=== PATIENT | female | born 1945 | race Caucasian/White ===

== ENCOUNTER 2017-12-09 09:17 | Observation (INO) | payer OTHER, MEDICARE ==
--- NOTE | 2017-12-09 09:40 | CPEKG ---
Heart Rate: 78 RR Interval: 769 P-R Interval: 152 QRSD Interval: 84 QT Interval: 384 QTC Interval: 438 P [place]: -3 QRS [place]: -37 T Wave [place]: 65 EKG Severity - OTHERWISE NORMAL ECG - EKG Impression: SINUS RHYTHM EKG Impression: LEFT AXIS DEVIATION Electronically Signed By: Prem Pollard 12-Dec-2017 09:01:44
--- NOTE | 2017-12-09 09:41 | EDPHY ---
HPI/HX/ROS/PE/MDM Narrative: CHIEF COMPLAINT: Shortness of breath, cough HPI: The patient is a 72 y/o female who is currently on chemotherapy for multiple myeloma and arrives with her friend complaining of intermittent shortness of breath and coughing onset Tuesday, 5 days ago. She feels symptoms are worse in the morning and while lying flat and have become progressively worse since onset. Her dyspnea feels like it is "hard to catch my breath." There is no difference with exertion and she's had no symptoms like this previously. She also has sinus drainage most noticeable in the morning that seems to aggravate her cough. She denies history of blood clots, cardiac disease , or respiratory disease. No fever, new leg pain or swelling, chest pain. REVIEW OF SYSTEMS: Aside from elements discussed in the HPI, a comprehensive 10-point review of systems was reviewed and is negative. PMH: Multiple myeloma - on chemotherapy SOCIAL HISTORY: Friend at bedside. PHYSICAL EXAM: General:Patient is alert, in no acute distress. ENT:Eyes are normal to inspection. ENT inspection normal. Neck: Normal inspection. Full range of motion. Respiratory:No respiratory distress. Breath sounds normal bilaterally. Cardiovascular: Regular rate and rhythm. Strong peripheral pulses. Normal cap refill. Abdomen:The abdomen is nontender to palpation. There are no peritoneal signs. Back: Normal to inspection. No tenderness to palpation. Skin: Normal color. No rash. Warm and dry. Extremities: Normal appearance. Full range of motion. Neuro: Oriented x3. Normal motor function. Normal sensory function. ED Course: This is a 72 y/o female undergoing chemotherapy for multiple myeloma who presents with a 5-day history of progressive intermittent dyspnea and cough with concurrent sinus drainage. Symptoms are worse in the morning and while lying flat, but unchanged with exertion. Lungs are clear to auscultation and she is not hypoxemic. Plan for IV, labs, EKG, chest x-ray. The 12 lead EKG was interpreted by myself. See hard copy and/or "tracemaster" electronic copy for interpretation. Chest x-ray: negative for acute process. Labs unremarkable. Attempted road test off O2. Patient's SpO2 dropped to 84% and she became tachycardic around 110. Vitals recovered quickly with rest. Plan for echocardiogram to assess heart function. Echocardiogram: preliminary read is negative Reassessed patient and discussed findings. Due to ongoing hypoxemia, I recommended admission for further care. She agrees to this. Spoke with hospitalist service. Dr. Correa accepts admission. - Data Points Imaging Results: Imaging Impressions Chest X-Ray 12/09/17 09:29 Impression: 1. A few fibrotic streaks are noted at the lung bases. 2. Stable moderate to marked compression fractures of T11 and T12. 3. Mild to moderate hiatal hernia. Imaging: I viewed and interpreted images myself Laboratory Results: Laboratory Results 12/09/17 09:45 12/09/17 09:45 12/09/17 12/09/17 12/09/17 12:04 10:15 09:45 WBC RBC Hgb Hct MCV MCH MCHC RDW Plt Count MPV Neut % (Auto) Lymph % (Auto) [place] % (Auto) Eos % (Auto) Baso % (Auto) Nucleat RBC Rel Count Absolute Neuts (auto) Absolute Lymphs (auto) Absolute Monos (auto) Absolute Eos (auto) Absolute Basos (auto) Absolute Nucleated RBC Immature Gran % Immature Gran # D-Dimer 0.33 ug/mLFEU ug/mLFEU (0.00-0.50) Sodium 140 mEq/L mEq/L (135-145) Potassium 3.7 mEq/L mEq/L (3.5-5.2) Chloride 105 mEq/L mEq/L (97-110) Carbon Dioxide 24 mEq/l mEq/l (22-31) Anion Gap 11 mEq/L mEq/L (8-16) BUN 3 mg/dL L mg/dL (7-23) Creatinine 0.5 mg/dL L mg/dL (0.6-1.0) Estimated GFR > 60 Glucose 92 mg/dL mg/dL (70-100) Calcium 8.4 mg/dL L mg/dL (8.5-10.4) Troponin I < 0.012 ng/mL ng/mL (0.000-0.034) NT-Pro-B Natriuret Pep 60 pg/mL pg/mL (0-125) 12/09/17 09:45 WBC 7.41 10^3/uL 10^3/uL (3.80-9.50) RBC 4.21 10^6/uL 10^6/uL (4.18-5.33) Hgb 12.8 g/dL g/dL (12.6-16.3) Hct 38.9 % % (38.0-47.0) MCV 92.4 fL fL (81.5-99.8) MCH 30.4 pg pg (27.9-34.1) MCHC 32.9 g/dL g/dL (32.4-36.7) RDW 15.7 % H % (11.5-15.2) Plt Count 399 10^3/uL 10^3/uL (150-400) MPV 9.6 fL fL (8.7-11.7) Neut % (Auto) 72.5 % % (39.3-74.2) Lymph % (Auto) 11.7 % L % (15.0-45.0) Dixon % (Auto) 11.3 % % (4.5-13.0) Eos % (Auto) 3.9 % % (0.6-7.6) Baso % (Auto) 0.3 % % (0.3-1.7) Nucleat RBC Rel Count 0.0 % % (0.0-0.2) Absolute Neuts (auto) 5.37 10^3/uL 10^3/uL (1.70-6.50) Absolute Lymphs (auto) 0.87 10^3/uL L 10^3/uL (1.00-3.00) Absolute Monos (auto) 0.84 10^3/uL H 10^3/uL (0.30-0.80) Absolute Eos (auto) 0.29 10^3/uL 10^3/uL (0.03-0.40) Absolute Basos (auto) 0.02 10^3/uL 10^3/uL (0.02-0.10) Absolute Nucleated RBC 0.00 10^3/uL 10^3/uL (0-0.01) Immature Gran % 0.3 % % (0.0-1.1) Immature Gran # 0.02 10^3/uL 10^3/uL (0.00-0.10) D-Dimer Sodium Potassium Chloride Carbon Dioxide Anion Gap BUN Creatinine Estimated GFR Glucose Calcium Troponin I NT-Pro-B Natriuret Pep General Time Seen by Provider: 12/09/17 09:27 Initial Vital Signs: Initial Vital Signs Temperature (C) 36.8 C 12/09/17 09:25 Heart Rate 88 12/09/17 09:25 Respiratory Rate 18 12/09/17 09:25 Blood Pressure 151/95 H 12/09/17 09:25 O2 Sat (%) 92 12/09/17 09:25 O2 Delivery Mode Room Air Allergies/Adverse Reactions: No Known Allergies Allergy (Verified 12/09/17 13:33) Home Medications: Medication Instructions Recorded Aspirin EC [Aspirin EC 325 mg (*)] 325 mg PO HS 12/09/17 C/E/Zn/Cu/OM3/DHA/EPA/LUT/ZEAX 1 each PO BID 12/09/17 [Preservision Areds 2 Softgel] Dexamethasone [Decadron 4 MG (*)] 20 mg PO AD 12/09/17 Lenalidomide [Revlimid] 10 mg PO HS 12/09/17 Levothyroxine [Synthroid 88 mcg 88 mcg PO DAILY06 12/09/17 (*)] Loperamide HCl [Imodium 2 mg (*)] 2 mg PO PRN PRN 12/09/17 Ondansetron [Zofran Odt] 8 mg PO Q8 PRN 12/09/17 Ranitidine HCl [Zantac] 150 mg PO TID PRN 12/09/17 Temazepam [Restoril] 30 mg PO HS 12/09/17 Albuterol Sulfate [Proair 90 mcg IH TID PRN #1 aer.pow.ba 12/10/17 Respiclick] predniSONE 20 mg PO DAILY #6 tab 12/10/17 Departure - Departure Disposition: [facility] Acute Clinical Impression: Hypoxia Multiple myeloma Qualifiers: Multiple myeloma remission status: not in remission Qualified Code(s): C90.00 - Multiple myeloma not having achieved remission Condition: Fair Report Scribed for: Eulalio Lincoln Report Scribed by: Mayra Giles Date of Report: 12/09/17 Time of Report: 09:41 Physician Review and Approval Statement: Portions of this note were transcribed by an ED scribe. I personally performed the history, physical exam, and medical decision making; and confirm the accuracy of the information in the transcribed note.
[2017-12-09 09:50] LABS: PLATELET COUNT 399 10^3/uL (150-400)
--- NOTE | 2017-12-09 13:39 | ECHO ---
[email or web address] [address] [address] Main: [phone] Fax: Transthoracic Echocardiogram Name: KATIE ROBIN MR#: [id number] Study Date: 12/09/2017 Study Time: 12:31 PM Date of : 1945 Age: 72 year(s) Height: 170.2 cm (67 in.) Weight: 79.38 kg (175 lb.) BSA: 1.91 m2 Gender: Female Examination: Limited Echo Indication: Shortness of breath Image Quality: Adequate Contrast: Requested by: Eulalio Lincoln BP: / Heart Rate: Rhythm: Indication: Shortness of breath Procedure Staff [employer]ision Crop Manager: Adriana Martinez RDCS Reading Physician: Melisa Centeno MD Requesting Provider: Conclusions: Normal size left ventricle. Normal global systolic LV function. EF is 62 %. No regional wall motion abnormality. Normal size right ventricle. Normal RV function. Mild mitral valve regurgitation is present. Mild tricuspid regurgitation is present. The pulmonary artery pressure is normal. no previous echo Measurements: Chambers Valvular Assessment AV/MV Valvular Assessment TV/PV Normal Normal Normal Name Value Range Name Value Range Name Value Range LVEF (BP): 62 % (>=55 %) AV Vmax: 1.90 m/s (1 m/s-1.7 TR Vmax: 2.46 mm/s ( - ) m/s) TR PGmax: 24 mmHg ( - ) AV maxP mmHg ( - ) syst. PAP: 29 mmHg ( - ) AV meanP mmHg ( - ) LVOT Vmax: 1.36 m/s (0.7 m/s-1.1 m/s) Continued Measurements: Chambers Valvular Assessment TV/PV Name Value Name Value LADs Lon.6 cm CVP (est.): 5 mmHg LA Area: 16.2 cm2 LA Volume: 34 ml Patient: KATIE ROBIN Study Date: 12/09/2017 Page 1 of 2 12:31 PM LA Volume Index: 17.8 ml/m2 Findings: Left Ventricle: Normal size left ventricle. No LV hypertrophy. Normal global systolic LV function. EF is 62 %. No regional wall motion abnormality. Right Ventricle: Normal size right ventricle. Normal RV function. Left Atrium: The left atrium is normal in size. Right Atrium: The right atrium is normal in size. Mitral Valve: There is mild thickening of the mitral valve leaflets. Mild mitral valve regurgitation is present. No mitral stenosis is present. Aortic Valve: The aortic valve is normal in appearance and function. There is no significant aortic valve regurgitation. No aortic valve stenosis is present. Tricuspid Valve: The tricuspid valve is normal in appearance and function. Mild tricuspid regurgitation is present. The pulmonary artery pressure is normal. Right ventricular systolic pressure measures 29mmHg. Pulmonic Valve: The pulmonic valve is normal in appearance and function. Aorta: The aorta is normal. IVC: The IVC is normal sized. Pericardium: There is pericardial fat. No pleural effusion. small anterior pericardial effusion without echocardiographic evidence of tamponade. (No Signature Object) Patient: KATIE ROBIN Study Date: 12/09/2017 Page 2 of 2 12:31 PM [id number]
[2017-12-09] MEDS ORDERED: ONDANSETRON DISINTEGRATING 4 MG TAB PO PRN (15:01)
[2017-12-09] MEDS ORDERED: ACETAMINOPHEN 325 MG TAB PO PRN (15:01)
[2017-12-09] MEDS ORDERED: oxyCODONE IR 5 MG TAB PO PRN (15:01)
[2017-12-09] MEDS ORDERED: ONDANSETRON 4 MG/2 ML VIAL IVP PRN (15:01)
[2017-12-09] MEDS ORDERED: LOPERAMIDE HCL 2 MG CAP PO PRN (15:03)
[2017-12-09] MEDS ORDERED: NON-FORMULARY NEW DRUG (Ranitidine Hcl [Zantac] 150 MG) PO PRN (15:03)
[2017-12-09] MEDS ORDERED: NON-FORMULARY NEW DRUG (Ondansetron [Zofran Odt] 8 MG) PO PRN (15:03)
--- NOTE | 2017-12-09 15:07 | PDGENHP ---
History and Physical - Chief Complaint cough, sob - History of Present Illness This is a 72 yo female who is being admitted for hypoxemia. She reports uri sx's , cough, SOB since Tuesday. She has been afebrile. She denies cp, sob, n/v/d, palpitations, leg swelling, fever. She does not have a hx of asthma. In the ED she had negative DDimer and BNP. She had an Echo which is unremarkable. A CXR which is unremarkable PMHx: MM, compression fracture, Hypothyroidism PSHx: Kyphoplasty, hysterectomy soc: hx of prior tobacco use. no etoh fmhx: no hx of MM History Information - Allergies/Home Medication List Allergies/Adverse Reactions: No Known Allergies Allergy (Verified 12/09/17 13:33) Home Medications: Aspirin EC [Aspirin EC 325 mg (*)] 325 mg PO HS 12/09/17 [Last Taken 12/08/17] C/E/Zn/Cu/OM3/DHA/EPA/LUT/ZEAX [Preservision Areds 2 Softgel] 1 each PO BID 06/18 [Last Taken 12/09/17] Dexamethasone [Decadron 4 MG (*)] 20 mg PO AD 12/09/17 [Last Taken 12/02/17] Lenalidomide [Revlimid] 10 mg PO HS 12/09/17 [Last Taken 12/08/17] Levothyroxine [Synthroid 88 mcg (*)] 88 mcg PO DAILY06 12/09/17 [Last Taken 06/18] Loperamide HCl [Imodium 2 mg (*)] 2 mg PO PRN PRN 12/09/17 [Last Taken 12/09/17] Ondansetron [Zofran Odt] 8 mg PO Q8 PRN 12/09/17 [Last Taken Unknown] Ranitidine HCl [Zantac] 150 mg PO TID PRN 12/09/17 [Last Taken Unknown] Temazepam [Restoril] 30 mg PO HS 12/09/17 [Last Taken 12/08/17] I have personally reviewed and updated: medical history, social history - Social History Smoking Status: Former smoker Review of Systems Review of Systems: ROS: 10pt was reviewed & negative except for what was stated in HPI & below Physical Exam Physical Exam: Temp Pulse Resp BP Pulse Ox 37.1 C 73 17 157/79 H 94 12/09/17 14:57 12/09/17 14:57 12/09/17 14:57 12/09/17 14:57 12/09/17 14:57 O2 (L/minute) 2 Constitutional: no apparent distress Eyes: PERRL, EOMI Ears, Nose, Mouth, Throat: moist mucous membranes, hearing normal Cardiovascular: regular rate and rhythym, No edema Respiratory: reduced air movement, expiratory wheeze Gastrointestinal: normoactive bowel sounds, soft, non-tender abdomen Genitourinary: no bladder fullness Skin: warm Musculoskeletal: full muscle strength Neurologic: AAOx3 Psychiatric: interacting appropriately, not anxious, not encephalopathic Lymph, Heme, Immunologic: No petechiae Lab Data & Imaging Review 12/09/17 09:45 12/09/17 09:45 WBC 7.41 10^3/uL (3.80-9.50) 12/09/17 09:45 RBC 4.21 10^6/uL (4.18-5.33) 12/09/17 09:45 Hgb 12.8 g/dL (12.6-16.3) 12/09/17 09:45 Hct 38.9 % (38.0-47.0) 12/09/17 09:45 MCV 92.4 fL (81.5-99.8) 12/09/17 09:45 MCH 30.4 pg (27.9-34.1) 12/09/17 09:45 MCHC 32.9 g/dL (32.4-36.7) 12/09/17 09:45 RDW 15.7 % (11.5-15.2) H 12/09/17 09:45 Plt Count 399 10^3/uL (150-400) 12/09/17 09:45 MPV 9.6 fL (8.7-11.7) 12/09/17 09:45 Neut % (Auto) 72.5 % (39.3-74.2) 12/09/17 09:45 Lymph % (Auto) 11.7 % (15.0-45.0) L 12/09/17 09:45 [place] % (Auto) 11.3 % (4.5-13.0) 12/09/17 09:45 Eos % (Auto) 3.9 % (0.6-7.6) 12/09/17 09:45 Baso % (Auto) 0.3 % (0.3-1.7) 12/09/17 09:45 Nucleat RBC Rel Count 0.0 % (0.0-0.2) 12/09/17 09:45 Absolute Neuts (auto) 5.37 10^3/uL (1.70-6.50) 12/09/17 09:45 Absolute Lymphs (auto) 0.87 10^3/uL (1.00-3.00) L 12/09/17 09:45 Absolute Monos (auto) 0.84 10^3/uL (0.30-0.80) H 12/09/17 09:45 Absolute Eos (auto) 0.29 10^3/uL (0.03-0.40) 12/09/17 09:45 Absolute Basos (auto) 0.02 10^3/uL (0.02-0.10) 12/09/17 09:45 Absolute Nucleated RBC 0.00 10^3/uL (0-0.01) 12/09/17 09:45 Immature Gran % 0.3 % (0.0-1.1) 12/09/17 09:45 Immature Gran # 0.02 10^3/uL (0.00-0.10) 12/09/17 09:45 D-Dimer 0.33 ug/mLFEU (0.00-0.50) 12/09/17 10:15 Sodium 140 mEq/L (135-145) 12/09/17 09:45 Potassium 3.7 mEq/L (3.5-5.2) 12/09/17 09:45 Chloride 105 mEq/L (97-110) 12/09/17 09:45 Carbon Dioxide 24 mEq/l (22-31) 12/09/17 09:45 Anion Gap 11 mEq/L (8-16) 12/09/17 09:45 BUN 3 mg/dL (7-23) L 12/09/17 09:45 Creatinine 0.5 mg/dL (0.6-1.0) L 12/09/17 09:45 Estimated GFR > 60 12/09/17 09:45 Glucose 92 mg/dL (70-100) 12/09/17 09:45 Calcium 8.4 mg/dL (8.5-10.4) L 12/09/17 09:45 Troponin I < 0.012 ng/mL (0.000-0.034) 12/09/17 09:45 NT-Pro-B Natriuret Pep 60 pg/mL (0-125) 12/09/17 12:04 Assessment & Plan Assessment: #Hypoxemia #Bronchitis #Hx of MM #Hypothyroidism Plan: Steroids inhaler home meds Lovenox for DVT proph observation
[2017-12-09] MEDS ORDERED: FAMOTIDINE 20 MG TAB PO PRN (15:08)
[2017-12-09] MEDS ORDERED: NS 1,000 ML IV SCH (15:15)
[2017-12-09] MEDS: methylPREDNISolone SOD SUCC 125 MG/2 ML VIAL IVP SCH ×2 (15:57→20:44)
[2017-12-09] MEDS: ALBUTEROL 3 ML DEYVIAL IH SCH ×2 (16:05→20:58)
[2017-12-09] MEDS: PRESERVISION AREDS2 FORMULA EYE VIT 1 EACH PO SCH (20:44)
[2017-12-09] MEDS ORDERED: TEMAZEPAM 15 MG CAP PO SCH (21:00)
[2017-12-09] MEDS ORDERED: ASPIRIN EC 325 MG TAB PO SCH (21:00)
[2017-12-09] MEDS ORDERED: NON-FORMULARY NEW DRUG (Temazepam [Restoril] 30 MG) PO SCH (21:00)
[2017-12-09] MEDS ORDERED: Lenalidomide [Revlimid] 10 MG PO SCH (21:00)
[2017-12-10] MEDS: ALBUTEROL 3 ML DEYVIAL IH SCH ×2 (05:11→11:43)
[2017-12-10 05:15] LABS: PLATELET COUNT 394 10^3/uL (150-400)
[2017-12-10] MEDS ORDERED: LEVOTHYROXINE 88 MCG TAB PO SCH (06:00)
[2017-12-10 08:17] VITALS: BP 147/70
[2017-12-10] MEDS: PRESERVISION AREDS2 FORMULA EYE VIT 1 EACH PO SCH (08:30)
[2017-12-10] MEDS: methylPREDNISolone SOD SUCC 125 MG/2 ML VIAL IVP SCH (08:30)
[2017-12-10] MEDS ORDERED: ENOXAPARIN 40 MG/0.4 ML SYR SC SCH (09:00)
--- NOTE | 2017-12-10 11:14 | PDDCSUM ---
Discharge Summary Discharge Summary: This is a 72 yo female admitted with Hypoxemia and acute bronchitis. She was kept overnight and started on IV steroids and scheduled inhalers. She is not much improved. She will be treated with Prednisone burst and inhaler. She will f /u with Oncology on Tuesday. DDX: #Hypoxemia #Acute Bronchitis #Hx of MM #Hypothyroidism Exam: NAD AAOX3 RRR DECREASED LUNGS SOUNDS, NORMAL WORK OF BREATHING NO LE EDEMA MEDS: SEE MED REC TOTAL TIME SPENT ON D/C IS 35 MINS
== END 2017-12-10 12:41 | disposition home or self-care (01) ==
LOC: F1N 14:19
PROVIDERS: ADMIT Family Medicine; ATTEND Family Medicine
DX: R09.02 Hypoxemia (principal); J20.9 Acute bronchitis, unspecified; C90.00 Multiple myeloma not having achieved remission; E03.9 Hypothyroidism, unspecified; K44.9 Diaphragmatic hernia without obstruction or gangrene; Z92.21 Personal history of antineoplastic chemotherapy; Z87.891 Personal history of nicotine dependence
CPT/HCPCS: 71046; 93005; 93308; 99285; G0378; J1650; J2930; J7613

== ENCOUNTER → 2018-02-23 | Outpatient (CLI) | payer OTHER, MEDICARE | LOC: FIMAGING 09:18 | PROVIDERS: ATTEND Internal Medicine Hematology & Oncology | DX: Z12.31 Encounter for screening mammogram for malignant neoplasm of breast (principal) ==